=== PATIENT | male | born 1965 | race Caucasian/White ===

== ENCOUNTER 2019-03-17 14:04 | Emergency (ER) | payer SELFPAY ==
[~2019-03-17] VITALS: Ht 170.2 cm; Wt 78.0 kg
[2019-03-17 14:07] VITALS: BP 122/68; PULSE 64; RESP 18; Ht 170.2 cm; Wt 78.0 kg
== END 2019-03-18 07:54 | disposition left against medical advice (07) ==
LOC: E/R 14:04
DX: Z53.21 Procedure and treatment not carried out due to patient leaving prior to being seen by health care provider (principal)